=== PATIENT | male | born 1975 | race Caucasian/White ===

== ENCOUNTER 2016-11-26 09:09 | Emergency (ER) | payer SELFPAY ==
[2016-11-26] MEDS ORDERED: ALBUTEROL NEB 2.5 MG/3 ML INH STA ×2 (09:38→11:04)
[2016-11-26] MEDS ORDERED: BENZONATATE 100 MG CAPSULE PO STA (09:39)
[2016-11-26] MEDS ORDERED: predniSONE 20 MG TABLET PO STA (09:39)
[2016-11-26] MEDS ORDERED: ACETAMINOPHEN 325 MG TABLET PO STA (09:44)
[2016-11-26] MEDS ORDERED: predniSONE 20 MG TABLET ONE (09:46)
[2016-11-26] MEDS ORDERED: ACETAMINOPHEN 325 MG TABLET PO ONE (09:46)
[2016-11-26] MEDS ORDERED: BENZONATATE 100 MG CAPSULE PO ONE (09:46)
[2016-11-26] MEDS ORDERED: ALBUTEROL NEB 2.5 MG/3 ML INH ONE ×3 (10:08→11:24)
== END 2016-11-26 12:27 | disposition home or self-care (01) ==
DX: J45.901 Unspecified asthma with (acute) exacerbation (principal); J84.10 Pulmonary fibrosis, unspecified; Z87.891 Personal history of nicotine dependence; I10 Essential (primary) hypertension; E11.9 Type 2 diabetes mellitus without complications
CPT/HCPCS: 71020; 94640; 99283; A9270; J7512; J7613